=== PATIENT | female | born 1940 | race Caucasian/White ===

== ENCOUNTER 2024-08-06 11:24 | Emergency (ER) | payer MEDICARE, OTHER ==
[~2024-08-06] VITALS: Ht 167.6 cm; Wt 85.9 kg
[~2024-08-06 11:24] MED LIST: ALLEGRA ALLERG180 MG PO; ATENOLOL25 MG PO; CALCIUM + D SO1 EACH CHEW; EZETIMIBE10 M1 PO; FELODIPINE5 MG PO; FLUOXETINE HCL10 MG PO; FLUTICASONE P15.8 ML NAS; GLUCOSAMINE PO; IRON CHEWS15 MG PO; LISINOPRIL20 MG PO; METOPROLOL SUCC25 M1 PO; ONDANSETRON HYDR4 MG PO; ONE DAILY PLUS1 EAC1 PO; RT ADVAIR HFA 2312 G IH; SIMVASTATIN40 M1 PO; SPIRIVA RE2.5 MCG/Ac IH; VITAMIN D310 MC3 PO; [UNRECOGNIZED DRUG - CODE] DE; [UNRECOGNIZED DRUG - OTHER]
[2024-08-06 11:56] LABS: HEMATOCRIT 36.7 % (37.0-47.0); HEMOGLOBIN 11.6 g/dL (12.5-16.0); MEAN CELL VOLUME 69 fl (78-100); MEAN CORPUSCULAR HEMOGLOBIN 22 pg (27-31); MEAN CORPUSCULAR HGB CONC 32 g/dL (33-37); MEAN PLATELET VOLUME 11.3 fl (7.4-10.4); PLATELET COUNT 207 K/mm3 (130-400); RED BLOOD COUNT 5.29 M/mm3 (4.10-5.30); RED CELL DISTRIBUTION WIDTH 17.5 % (11.5-14.5); WHITE BLOOD COUNT 15.1 K/mm3 (4.8-10.8)
[2024-08-06] MEDS ORDERED: Ondansetron 4 MG/2 ML VIAL IV ONE (12:00)
[2024-08-06 12:01] LABS: ALBUMIN 3.9 g/dL (3.4-4.8)
[2024-08-06 12:03] LABS: CALCIUM 9.3 mg/dL (8.3-10.5)
[2024-08-06 12:04] LABS: TOTAL PROTEIN 6.8 g/dL (6.2-8.1)
[2024-08-06 12:06] LABS: TOTAL BILIRUBIN 1.1 mg/dL (0.2-1.2)
[2024-08-06 12:20] LABS: BAND 3 % (0-10); LYMPHOCYTE 6 % (20-51); MONOCYTE 3 % (3-10); NEUTROPHILS 87 % (42-75)
[2024-08-06 12:21] LABS: HYPOCHROMIA 1+; MICROCYTOSIS 2+; TEAR DROP CELLS 1+
[2024-08-06] MEDS ORDERED: Iohexol 300 - 100 ML VIAL IV ONE (12:47)
[2024-08-06] MEDS ORDERED: NS 100 ML IV SCH (12:48)
[2024-08-06] MEDS ORDERED: ZOFRAN ODT4 MG PO (13:18)
[2024-08-06 15:00] VITALS: BP 114/80
== END 2024-08-06 15:30 | disposition home or self-care (01) ==
LOC: ED 11:24
PROVIDERS: Family Medicine
DX: K52.9 Noninfective gastroenteritis and colitis, unspecified (principal); E86.0 Dehydration; E66.9 Obesity, unspecified; Z90.49 Acquired absence of other specified parts of digestive tract; Z93.3 Colostomy status; Z68.30 Body mass index [BMI] 30.0-30.9, adult
CPT/HCPCS: J2405; J7120; Q9967